=== PATIENT | male | born 1995 | race American Indian/Alaskan Native ===

== ENCOUNTER 2020-08-28 19:20 | Emergency (ER) | payer SELFPAY ==
[2020-08-28 20:09] VITALS: BP 116/69
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
== END 2020-08-28 20:28 | disposition home or self-care (01) ==
LOC: ED 19:20
DX: S00.93XA Contusion of unspecified part of head, initial encounter (principal); Z79.899 Other long term (current) drug therapy; F17.200 Nicotine dependence, unspecified, uncomplicated; Y08.89XA Assault by other specified means, initial encounter; Y93.89 Activity, other specified; Y92.89 Other specified places as the place of occurrence of the external cause; Y99.8 Other external cause status
CPT/HCPCS: 99282